=== PATIENT | female | born 1985 | race Caucasian/White ===

== ENCOUNTER 2016-12-25 20:50 | Emergency (ER) | payer OTHER ==
[~2016-12-25 20:50] MED LIST: PROM25 PO; SULF1TAB42 PO; [UNRECOGNIZED DRUG - CODE] PO
== END 2016-12-25 21:31 | disposition left against medical advice (07) ==
LOC: EMS 20:52
DX: O20.9 Hemorrhage in early pregnancy, unspecified (principal); Z3A.00 Weeks of gestation of pregnancy not specified; Z53.21 Procedure and treatment not carried out due to patient leaving prior to being seen by health care provider